=== PATIENT | female | born 1940 | race African-American/Black ===

== ENCOUNTER 2022-07-15 13:30 | Emergency (ER) | payer OTHER ==
[~2022-07-15] VITALS: Ht 175.3 cm; Wt 77.0 kg
[2022-07-15] MEDS ORDERED: KETOROLAC 30MG/ML VIAL IV STA (13:58)
[2022-07-15] MEDS ORDERED: SODIUM CHLORIDE 0.9% 1,000 ML IV ONE (14:00)
[2022-07-15] MEDS ORDERED: POLYETHYLENE GLYCOL 3350 (17GM) 1 DOSE PACK PO ONE (14:00)
[2022-07-15] MEDS ORDERED: LACTULOSE 20G/30ML UDC PO ONE (14:00)
[2022-07-15 14:30] LABS: BASOPHILS % 0.4 % (0.0-2.0); EOSINOPHILS % 0.9 % (0.0-5.0); HEMATOCRIT. 40.8 % (36.0-48.0); HEMOGLOBIN. 13.4 g/dL (12.0-16.0); LYMPHOCYTES % 21.6 % (20.0-50.0); MEAN CORPUSCULAR HEMOGLOBIN 28.4 pg (28.0-32.0); MEAN CORPUSCULAR VOLUME 86.7 fL (81.0-99.0); MEAN PLATELET VOLUME 7.6 fl (7.4-10.4); MONOCYTES % 7.4 % (2.0-8.0); NEUTROPHILS % 69.7 % (40.0-76.0); PLATELET 253 x1000/uL (130-400); RED BLOOD CELL COUNT 4.71 mill/uL (4.2-5.4); RED CELL DISTRIBUTION WIDTH 13.6 % (11.6-14.6)
[2022-07-15 14:36] LABS: CHLORIDE 106 mEq/L (98-107)
[2022-07-15 14:39] LABS: PROTHROMBIN TIME 10.9 sec (9.6-11.0)
[2022-07-15] MEDS ORDERED: LACTULOSE 20G/30ML UDC PO NR (16:45)
[2022-07-15] MEDS ORDERED: POLY119P2 MT (17:42)
[2022-07-15 17:45] VITALS: BP 143/79
== END 2022-07-15 18:55 | disposition home or self-care (01) ==
LOC: ER 13:30
DX: R10.9 Unspecified abdominal pain (principal); R11.0 Nausea
CPT/HCPCS: 36415; 74176; 80053; 83690; 85025; 85610; 96361; 96374; 99285; J1885; J7030